=== PATIENT | male | born 1955 | race Caucasian/White ===

== ENCOUNTER 2017-11-01 22:22 | Inpatient (IN) | payer OTHER ==
[~2017-11-01] VITALS: Ht 182.9 cm; Wt 53.5 kg
[2017-11-01 22:29] VITALS: BP 171/87
[2017-11-01] MEDS ORDERED: SYMBICORT160 MCG/4. INH (22:48)
[2017-11-01] MEDS ORDERED: ALBUTEROL2.5 MG/31 INH (22:49)
[2017-11-01] MEDS ORDERED: NORVASC10 MG PO (22:51)
[2017-11-01 23:06] LABS: INFLUENZA A ANTIGEN None Detected (None Detect); INFLUENZA B ANTIGEN None Detected (None Detect)
[2017-11-01 23:14] LABS: HEMATOCRIT 42.7 % (42.0-52.0); HEMOGLOBIN 14.6 gm/dL (14.0-18.0); MCH 32.9 pg (26.0-34.0); MCHC 34.3 g/dL (28.0-37.0); MCV 95.9 fL (80.0-100.0); MPV 6.9 fl. (7.2-11.1); NUCLEATED RBCS 0 /100WBC; PLATELET COUNT* 262 thou/uL (150-400); RBC 4.45 mil/uL (4.50-6.00); RDW-CV 13.5 % (10.5-14.5); WBC 8.5 thou/uL (4.0-11.0)
[2017-11-01 23:33] LABS: ANION GAP 10 mmol/L (7-16); BUN 15 mg/dL (7-18); CALCIUM 9.1 mg/dL (8.5-10.1); CHLORIDE 90 mmol/L (98-107); CO2 29 mmol/L (21-32); CREATININE 0.7 mg/dL (0.6-1.3); GLUCOSE 131 mg/dL (70-99); POTASSIUM 3.8 mmol/L (3.5-5.1); SODIUM 129 mmol/L (136-145)
[2017-11-01 23:36] LABS: ABSOLUTE EOSINOPHILS 0.1 thou/uL (0.0-0.7); ABSOLUTE LYMPHOCYTES 0.8 thou/uL (0.8-5.3); ABSOLUTE MONOCYTES 0.4 thou/uL (0.0-1.2); ABSOLUTE NEUTROPHILS 7.2 thou/uL (1.6-8.1); ANISOCYTOSIS Occasional; PLATELET ESTIMATE ADEQUATE; TOXIC GRANULATION 1+
[2017-11-01 23:37] LABS: ALBUMIN 4.7 g/dL (3.4-5.0); ALKALINE PHOSPHATASE 101 U/L (46-116); LIPASE 126 U/L (73-393); NT-PRO BRAIN NAT PEPTIDE 207 pg/mL (<300); SGOT 36 U/L (15-37); SGPT 29 U/L (30-65); TOTAL BILIRUBIN 0.6 mg/dL (<0.1-1.0); TOTAL PROTEIN 8.7 g/dL (6.4-8.2); TROPONIN-I LEVEL <0.06 ng/mL (<0.06)
--- NOTE | 2017-11-02 00:45 | NUR ---
Pt ambulated to bathroom, refused urinal, very short of air afterwards, advised to use urinal, pt agreed he is to short of air without O2.
[2017-11-02 01:02] VITALS: BP 136/78
[2017-11-02 01:15] VITALS: BP 127/75
--- NOTE | 2017-11-02 06:10 | NUR ---
PATIENT ARRIVED ON FLOOR FROM ER ABOUT 0100. PATIENT ADMISSION HISTORY AND ASSESSMENT WAS COMPLETED CHARTED. IV FLUIDS WERE STARTED AT 100 ML/HR. PATIENT IS ON OXYGEN AT 2L PER NASAL CANNULA SATTING 96%. IS AT BEDSIDE. WILL CONTINUE TO MONITOR.
[2017-11-02 08:00] VITALS: BP 110/66
--- NOTE | 2017-11-02 15:59 | EKG ---
[place] [address] ELECTROCARDIOGRAM REPORT Name: TARAS GIBBS Room: [address] M.R.#: [id number] Admission: 11/01/17 Attend Phys: Ralph Buenrostro, Discharge: Date of : 53 Report #: [id number] THIS REPORT FOR: //name// [facility] ED Test Date: 2017-11-01 Test Time: 22:32:29 Pat Name: TARAS GIBBS Department: Room: [facility] Gender: M Center Manager: KARLEE : 1955 Requested By: Jason David Order Number: [id number] MD: Derek Collado Measurements Intervals [place] Rate: 87 P: 88 MT: 148 QRS: 86 QRSD: 107 T: 20 QT: 367 QTc: 442 Interpretive Statements Sinus rhythm Biatrial enlargement Borderline right axis deviation Minimal ST depression, inferior leads Borderline ST elevation, anterior leads No previous ECG available for comparison Electronically Signed On 11-02-2017 15:59:16 ALTERATION INSPECTOR by Derek Collado [email or web address] <ELECTRONICALLY SIGNED> By: Phoenix Collado MD, MERGED WITH [facility] 11/02/17 1559 31 31 Phoenix Collado MD, MERGED WITH [facility] /EPI
[2017-11-02 16:00] VITALS: BP 133/68
--- NOTE | 2017-11-02 18:03 | NUR ---
TOOK OVER CARE OF PATIENT THIS AFGTER SHIFT CHANGE, AGREE WITH THE ASSESSMENT DONE BY OTHER NURSE. PATIENT HAS HAD NO COMPLAINTS OF ANY KIND TODAY. IV IN LEFT FORARM WORKS WELL FOR IV STEROIDS, NO FLUIDS RUNNING. VITAL SIGNS STABLE ON 2 LITERS OF OXYGEN THROUGH NASAL CANNULA. CALL LIGHT IN REACH WILL CONTINUE TO MONITOR.
[2017-11-03 00:07] VITALS: BP 104/58
--- NOTE | 2017-11-03 06:00 | NUR ---
PATIENT SLEPT MOST OF THE NIGHT. PATIENT REMAINS ON OXYGEN AT 2 LITERS PER NASAL CANNULA. IV REMAINS SALINE LOCKED. WILL CONTINUE TO MONITOR.
[2017-11-03 07:45] VITALS: BP 125/71
[2017-11-03 10:41] LABS: CALCIUM 8.9 mg/dL (8.5-10.1); CREATININE 0.7 mg/dL (0.6-1.3); POTASSIUM 4.1 mmol/L (3.5-5.1)
--- NOTE | 2017-11-03 13:19 | NUR ---
Nutrition: Pt assessed for low BMI. Wt is 120-118#. No wt changes noted. BMI is 16.1. Pt has COPD, emphysema. On 2L NC. 2gm Na diet. Labs: albumin 4.7, BG 213. Underweight R/T demands of COPD/emphysema as evidenced by chart review. RD will order Boost+ for added nutrition. GOALS: >75% of meals/supplements consumed, no weight loss from 118#. Mild to moderate risk.
--- NOTE | 2017-11-03 16:01 | NUR ---
INITIAL ASSESSMENT: Pt evaluated for d/c planning needs. Reviewed chart. Pt lives in house with spouse and was independent with ADL's. Pt uses no DME and has not had home health in the past. Pt is employed outside the home. Pt plans on returning home on d/c from hospital. Will remain available to assist as needed.
--- NOTE | 2017-11-03 17:30 | NUR ---
PT UP IN ROOM WITH STEADY GAIT. PT WEANED OFF O2 BUT CONTINUES TO HAVE SOA WITH EXERTION.
--- NOTE | 2017-11-04 06:14 | NUR ---
ASSESSMENT COMPLETE. PT SLEPT GOOD DURING THE NIGHT. PT DENIES PAIN. PT IS ON 2L PER NC, PT REPORTS FEELING SOA WITHOUT IT. SATS DROP DOWN TO UPPER 80'S WITHOUT O2. PT GIVEN IV SOLUMEDROL DURING THE NIGHT. PT IS UP AD DAMON WITH STEADY GAIT. PT HAS IV IN LEFT FORARM, SALINE LOCKED. SKIN W/D/I. SEE ASSESSMENT AND VITALS FOR OTHER DETAILS. CALL LIGHT WITHIN REACH, WILL CONTINUE TO MONITOR
[2017-11-04 08:00] VITALS: BP 138/69
--- NOTE | 2017-11-04 17:01 | NUR ---
DAY 4 OF STAY. A/O X 4, INDEPENDENT WITH ADL, DENIES DISCOMFORT, UP AD DAMON. BRENDA ROOM AIR MOST OF THIS SHIFT. AT BEDSIDE THROUGHOUT THE DAY. DISCHARGE PLAN IS TO RETURN TO HOME, POSSIBLE NEED FOR 02. LUNGS DIMINISHED WITH WHEEZES, NONPROD COUGH NOTED. ASSESSMENT OTHERWISE UNREMARKABLE.
--- NOTE | 2017-11-04 18:28 | NUR ---
PATIENT INSTRUCTED ON USE OF INCENTIVE SPRIOMETER, DEMONSTRATED USE APPROPRIATELY.
[2017-11-05] VITALS: BP 123/67
--- NOTE | 2017-11-05 06:01 | NUR ---
ASSESSMENT COMPLETE. PT SLEPT MOST OF THE NIGHT WITHOUT ANY CONCERNS. PT ON ROOM AIR THROUGHOUT THE NIGHT WITHOUT ANY ISSUES PER PT REPORT. PT DENIES PAIN AND N/V. PT IS UP AD DAMON WITH STEADY GAIT, SEE ASSESMENT AND VITALS FOR OTHER DETAILS. CALL LIGHT WITHIN REACH, WILL CONTINUE TO MONITOR
[2017-11-05 08:00] VITALS: BP 110/61
[2017-11-05] MEDS ORDERED: CEFUROXIME500 MG PO (11:10)
[2017-11-05] MEDS ORDERED: AZITHROMYCIN 2250 MG PO (11:10)
[2017-11-05] MEDS ORDERED: SINGULAIR 10 MG10 M1 PO (11:10)
[2017-11-05] MEDS ORDERED: PREDNISONE 10 M10 M1 PO (11:10)
[2017-11-05] MEDS ORDERED: OXYGEN MISCELL (12:10)
[2017-11-05 12:11] VITALS: BP 110/61
--- NOTE | 2017-11-05 12:13 | NUR ---
ORDERS RECEIVED FOR DC HOME, PT QUALIFIED FOR O2 WITH [employer]. DISCUSSED WITH PT AND ARRANGED THRU [facility] PER HIS INSURANCE CONTRACT. CALLED AND FAXED ORDER TO [facility]. SHE WILL DELIVER TANK TO HOSPITAL. PT DENIES OTHER NEEDS. PLANS TO RETURN HOME WITH
--- NOTE | 2017-11-05 18:45 | NUR ---
DAY 5 OF STAY. A/O, UP AD DAMON, DENIES DISCOMFORT. DISCHARGE ORDERS RECEIVED, IV ACCESS REMOVED WITHOUT INCIDENT. DISCHARGE INSTRUCTIONS, FOLLOW UP APPOINTMENTS AND PRESCRIPTIONS DISCUSSED WITH AND GIVEN TO PATIENT, DENIES QUESTIONS AT THIS TIME. OXYGEN DELIVERED TO ROOM, PATIENT INSTRUCTED ON USE, DENIES ANY QUESTIONS AT THIS TIME. PERSONAL EFFECTS GATHERED AND ACCOUNTED FOR, IN COMPANY OF , PROVIDING TRANSPORTATION. PATIENT TRANSPORTED VIA WHEELCHAIR TO MAIN ENTRANCE IN STABLE CONDITION.
== END 2017-11-05 13:27 | disposition home or self-care (01) | DRG 189 ==
LOC: M.ERS 22:22 → M.3W 23:50 → M.TBA-ER 23:50 → M.3W 11-02 01:09
PROVIDERS: Emergency Medicine Emergency Medical Services; Internal Medicine; ADMIT Family Medicine
DX: J96.01 Acute respiratory failure with hypoxia (principal); J44.1 Chronic obstructive pulmonary disease with (acute) exacerbation; E87.1 Hypo-osmolality and hyponatremia; I10 Essential (primary) hypertension; F17.210 Nicotine dependence, cigarettes, uncomplicated; Z83.6 Family history of other diseases of the respiratory system; Z79.899 Other long term (current) drug therapy; J43.9 Emphysema, unspecified

== ENCOUNTER 2021-07-30 20:28 | Observation (INO) | payer OTHER ==
[~2021-07-30] VITALS: Ht 182.9 cm; Wt 57.6 kg
--- NOTE | ~2021-07-30 | EMS ---
[facility] [address] [place] [address] EMS Patient Care Report Name: TARAS GIBBS Room: [address] Precious#: [id number] Admission: 07/30/21 Attend Phys: Boone Li Discharge: Date of : 53 Report #: [id number] THIS REPORT FOR: //name// Report Transmitted: 07/30/2021 20:36 EMS Care Summary [facility] Incident [id number] @ 07/30/2021 19:39 Incident Location [address] [place] [address] Patient TARAS GIBBS Male, 65 Years 1955 Patient Address [address] [place] [address] Patient History Chronic Obstructive Pulmonary Disease (COPD),Hypertension (HTN), Patient Allergies No known allergies, Patient Medications Amlodipine, Chief Complaint Shortness of Breath Disposition Transported No Lights/[facility] Reason Breathing Problem Transported To [facility] Narrative Med 2 was dispatched to 65 year old man that was throwing up and not feeling well. When we arrived on scene the patient was found sitting on the toilet in [facility] [address] [place] [address] EMS Patient Care Report Name: TARAS GIBBS Room: [address] Precious#: [id number] Admission: 07/30/21 Attend Phys: Boone Li Discharge: Date of : 53 Report #: [id number] his bathroom in obvious raspatory distress. The patient said he has a history of COPD and was having shortness of air. The patient said he has been having a hard time breathing for about 4 hours now it has not gone away like it has times before. The patient was assessed on scene and put on 15L O2 via non-rebreather. After a few moments on oxygen the patient said he was starting to feel a lot better. The patient was moved to the stretcher and taken to the ambulance. The patient was evaluated while en-route to [facility] with no noticeable change in his condition. Initial Vitals @20:06P: 112,R: 20,BP: 140/88,GCS: 15,SpO2: 91,Revised Trauma: 12, @20:21P: 120,R: 20,BP: 150/88,SpO2: 99, Impression Shortness of breath Procedures @20:00Oxygen FlowRate: 15 Device: Non Re-breather Mask (NRB) Response: ImprovedSucceeded Timeline 19:39,Call Received 19:39,Dispatched 19:43,En Route 19:48,Initial Responder On Scene 19:48,On Scene 19:49,At Patient 20:00,Oxygen FlowRate: 15 Device: Non Re-breather Mask (NRB) Response: ImprovedSucceeded, 20:01,Depart Scene 20:06,BP: 140/88 M,PULSE: 112,RR: 20 R,SPO2: 91 Ox,ETCO2: ,BG: ,PAIN: ,GCS: 15, 20:21,BP: 150/88 M,PULSE: 120,RR: 20 R,SPO2: 99 Ox,ETCO2: ,BG: ,PAIN: ,GCS: , 20:24,At Destination 20:24,Transfer Patient 20:50,Call Closed 20:50,In District Disclaimer v1.1 Copyright 2020 [employer] This EMS Care Summary contains data elements from the applicable legal record (which may be displayed differently). It is designed to provide pertinent information for the following purposes: continuity of care, clinical quality, and state data reporting. The complete legal record is available to ED staff and administrators of the receiving hospital in [facility] Patient Tracker. All data is provided "as is."
[~2021-07-30 20:28] MED LIST: ALBUTEROL2.5 MG/31 INH; AZITHROMYCIN 2250 MG PO; CEFUROXIME500 MG PO; NORVASC10 MG PO; OXYGEN MISCELL; PREDNISONE 10 M10 M1 PO; SINGULAIR 10 MG10 M1 PO; SYMBICORT160 MCG/4. INH
[2021-07-30 20:29] VITALS: BP 120/84
[2021-07-30] MEDS ORDERED: SPIRIVA18 MCG INH (20:33)
[2021-07-30 20:58] LABS: ABSOLUTE BASOPHILS 0.1 thou/uL (0.0-0.2); ABSOLUTE EOSINOPHILS 0.2 thou/uL (0.0-0.7); ABSOLUTE LYMPHOCYTES 1.2 thou/uL (0.8-5.3); ABSOLUTE MONOCYTES 0.9 thou/uL (0.0-1.2); ABSOLUTE NEUTROPHILS 7.2 thou/uL (1.6-8.1); BASOPHILS 0.9 %; EOSINOPHILS 1.9 %; HEMATOCRIT 42.6 % (42.0-52.0); HEMOGLOBIN 14.8 gm/dL (14.0-18.0); LYMPHOCYTES 12.6 %; MCH 32.8 pg (26.0-34.0); MCHC 34.7 g/dL (28.0-37.0); MCV 94.6 fL (80.0-100.0); MONOCYTES 9.1 %; MPV 6.5 fl. (7.2-11.1); NUCLEATED RBCS 0 /100WBC; PLATELET COUNT* 306 thou/uL (150-400); POLYS 75.5 %; RBC 4.51 mil/uL (4.50-6.00); WBC 9.6 thou/uL (4.0-11.0)
[2021-07-30 21:07] LABS: CALCIUM 9.2 mg/dL (8.5-10.1); CREATININE 0.7 mg/dL (0.6-1.3); POTASSIUM 4.1 mmol/L (3.5-5.1)
[2021-07-30 21:17] LABS: ALBUMIN 4.7 g/dL (3.4-5.0); MAGNESIUM 2.1 mg/dL (1.8-2.4); TOTAL BILIRUBIN 0.5 mg/dL (<0.1-1.0); TOTAL PROTEIN 8.7 g/dL (6.4-8.2)
[2021-07-30 22:18] VITALS: BP 131/74
[2021-07-30 22:20] VITALS: BP 126/74
[2021-07-31 03:26] VITALS: BP 109/59
[2021-07-31 08:00] VITALS: BP 122/61
[2021-07-31 10:08] LABS: HEMATOCRIT 40.3 % (42.0-52.0); MCH 32.9 pg (26.0-34.0); MCHC 34.8 g/dL (28.0-37.0); MCV 94.5 fL (80.0-100.0); MPV 6.3 fl. (7.2-11.1); NUCLEATED RBCS 0 /100WBC; PLATELET COUNT* 245 thou/uL (150-400); RBC 4.26 mil/uL (4.50-6.00); WBC 4.6 thou/uL (4.0-11.0)
[2021-07-31 10:15] LABS: CALCIUM 8.7 mg/dL (8.5-10.1); CREATININE 0.9 mg/dL (0.6-1.3); POTASSIUM 4.3 mmol/L (3.5-5.1)
[2021-07-31 10:20] LABS: ALBUMIN 3.8 g/dL (3.4-5.0); TOTAL PROTEIN 7.6 g/dL (6.4-8.2)
[2021-07-31 10:35] LABS: ABSOLUTE LYMPHOCYTES 0.2 thou/uL (0.8-5.3); ABSOLUTE NEUTROPHILS 4.4 thou/uL (1.6-8.1); METAMYELOCYTES 1 %; PLATELET ESTIMATE ADEQUATE
--- NOTE | 2021-07-31 11:36 | EKG ---
[place] [address] ELECTROCARDIOGRAM REPORT Name: TARAS GIBBS Room: [address]R.#: [id number] Admission: 07/30/21 Attend Phys: Omari Mansfield Discharge: Date of : 53 Date of Service: 07/30/212033 Report #: [id number] THIS REPORT FOR: //name// [facility] ED Test Date: 2021-07-30 Test Time: 20:34:33 Pat Name: TARAS GIBBS Department: Room: [address] Gender: M Summer Babysitter: MS : 1955 Requested By: Christina Bashir Order Number: [id number] MD: Taras Pace Measurements Intervals [place] Rate: 121 P: 88 NH: 171 QRS: 93 QRSD: 132 T: 64 QT: 313 QTc: 444 Interpretive Statements Sinus tachycardia LAE, consider biatrial enlargement RBBB and LPFB artifact noted Baseline wander in lead(s) V2 Compared to ECG 11/01/2017 22:32:29 Sinus rhythm no longer present ST (T wave) deviation still present Electronically Signed On 07-31-2021 11:36:25 CDT by Taras Pace [email or web address] <ELECTRONICALLY SIGNED> By: Taras Pace MD, FACC 07/31/21 1136 33 33 Taras Pace MD, FAC /EPI
[2021-07-31] MEDS ORDERED: PREDNISONE 10 M10 MG PO (12:23)
[2021-07-31] MEDS ORDERED: PROTONIX40 M2 PO (12:23)
[2021-07-31] MEDS ORDERED: DOXYCYCLINE 10100 MG PO (12:23)
[2021-07-31 12:51] VITALS: BP 122/61
== END 2021-07-31 13:55 | disposition home or self-care (01) ==
LOC: M.ERS 20:28 → M.ORTHSURG 21:26 → M.TBA-ER 21:26 → M.ORTHSURG 21:41
PROVIDERS: Emergency Medicine; Internal Medicine; ADMIT Internal Medicine; ATTEND Internal Medicine
DX: J44.1 Chronic obstructive pulmonary disease with (acute) exacerbation (principal); Z20.822 Contact with and (suspected) exposure to COVID-19; J20.9 Acute bronchitis, unspecified; I10 Essential (primary) hypertension; E87.1 Hypo-osmolality and hyponatremia; F10.20 Alcohol dependence, uncomplicated; F17.210 Nicotine dependence, cigarettes, uncomplicated; Z79.899 Other long term (current) drug therapy; Z23 Encounter for immunization